=== PATIENT | male | born 1970 | race Caucasian/White ===

== ENCOUNTER 2019-04-29 11:32 | Emergency (ER) | payer OTHER ==
[2019-04-29 11:38] VITALS: TEMP 97.8
[2019-04-29] MEDS ORDERED: hydrALAZINE HCL 20 MG/ML 1 ML VIAL IVP STA (12:07)
--- NOTE | 2019-04-29 12:14 | ED ---
General Adult HPI - General Chief complaint: Recheck/Abnormal Lab/Rx Stated complaint: high bp Time Seen by Provider: 04/29/19 11:35 Source: patient, RN notes reviewed, old records reviewed Mode of arrival: ambulatory Limitations: no limitations - History of Present Illness Initial comments: This is a 48-year-old male who presents to the emergency department stating that he was getting employment physical and he told his blood pressure was extremely high and needed to come to the emergency department. Patient states she has no symptoms. Patient denies any chest pain palpitations difficulty breathing shortness of breath patient denies any fever chills or cough per patient denies any abdominal pain patient denies nausea vomiting diarrhea. Patient denies any headache patient denies any blurred vision. Patient states he is absolutely symptom-free - Related Data Previous Rx's Medication Instructions Recorded amLODIPine [Norvasc] 5 mg PO DAILY #30 tab 04/29/19 Allergies Allergy/AdvReac Type Severity Reaction Status Date / Time Penicillins Allergy Swelling Verified 04/29/19 11:36 Review of Systems ROS Statement: Those systems with pertinent positive or pertinent negative responses have been documented in the HPI. ROS Other: All systems not noted in ROS Statement are negative. Past Medical History Past Medical History: Hypertension History of Any Multi-Drug Resistant Organisms: None Reported Past Surgical History: No Surgical Hx Reported Past Psychological History: No Psychological Hx Reported Smoking Status: Current every day smoker Past Alcohol Use History: Occasional Past Drug Use History: None Reported General Exam - General Exam Comments Initial Comments: GENERAL: Patient is well-developed and well-nourished. Patient is nontoxic and well- hydrated and is in no acute distress. ENT: Neck is soft and supple. No significant lymphadenopathy is noted. Oropharynx is clear. Moist mucous membranes. Neck has full range of motion without eliciting any pain. There is no thyroid enlargement and no masses were felt. EYES: The sclera were anicteric and conjunctiva were pink and moist. Extraocular movements were intact and pupils were equal round and reactive to light. Eyelids were unremarkable. PULMONARY: Unlabored respirations. Good breath sounds bilaterally. No audible rales rhonchi or wheezing was noted. CARDIOVASCULAR: There is a regular rate and rhythm without any murmurs gallops or rubs. ABDOMEN: Soft and nontender with normal bowel sounds. No palpable organomegaly was noted. There is no palpable pulsatile mass. SKIN: Skin is clear with no lesions or rashes and otherwise unremarkable. NEUROLOGIC: Patient is alert and oriented x3. Cranial nerves II through XII are grossly intact. Motor and sensory are also intact. Normal speech, volume and content. Symmetrical smile. MUSCULOSKELETAL: Normal extremities with adequate strength and full range of motion. No lower extremity swelling or edema. No calf tenderness. LYMPHATICS: No significant lymphadenopathy is noted PSYCHIATRIC: Normal psychiatric evaluation. Limitations: no limitations Course Vital Signs 04/29/19 04/29/19 04/29/19 11:36 12:31 13:18 Temperature 97.8 F Pulse Rate 75 68 82 Respiratory 16 18 18 Rate Blood Pressure 221/142 188/115 172/96 O2 Sat by Pulse 96 98 98 Oximetry Medical Decision Making - Medical Decision Making EKG shows normal sinus rhythm at 73 bpm OK interval is on a 56 QRS is 96 QT interval 38 QTC is 427. Patient's EKG shows no ST segment elevation or depression. Chest x-ray shows no acute pulmonary process over there is a 1.7 cm pulmonary nodule that needs to be followed up. Patient's blood pressure came down significantly the emergency department. Patient remained asymptomatic throughout his stay. - Lab Data Result diagrams: 04/29/19 12:15 04/29/19 12:15 Lab Results 04/29/19 04/29/19 04/29/19 Range/Units 12:15 12:15 12:15 WBC 8.2 (3.8-10.6) k/uL RBC 5.81 (4.30-5.90) m/uL Hgb 16.7 (13.0-17.5) gm/dL Hct 50.8 (39.0-53.0) % MCV 87.5 (80.0-100.0) fL MCH 28.8 (25.0-35.0) pg MCHC 32.9 (31.0-37.0) g/dL RDW 13.7 (11.5-15.5) % Plt Count 180 (150-450) k/uL Neutrophils % 54 % Lymphocytes % 30 % Monocytes % 7 % Eosinophils % 6 % Basophils % 1 % Neutrophils # 4.4 (1.3-7.7) k/uL Lymphocytes # 2.4 (1.0-4.8) k/uL Monocytes # 0.5 (0-1.0) k/uL Eosinophils # 0.5 (0-0.7) k/uL Basophils # 0.1 (0-0.2) k/uL PT 9.9 (9.0-12.0) sec INR 0.9 (<1.2) APTT 25.9 (22.0-30.0) sec Sodium 137 (137-145) mmol/L Potassium 4.6 (3.5-5.1) mmol/L Chloride 104 (98-107) mmol/L Carbon Dioxide 26 (22-30) mmol/L Anion Gap 7 mmol/L BUN 11 (9-20) mg/dL Creatinine 0.95 (0.66-1.25) mg/dL Est GFR (CKD-EPI)AfAm >90 (>60 ml/min/1.73 sqM) Est GFR (CKD-EPI)NonAf >90 (>60 ml/min/1.73 sqM) Glucose 100 H (74-99) mg/dL Calcium 9.5 (8.4-10.2) mg/dL Magnesium 2.0 (1.6-2.3) mg/dL Total Bilirubin 0.9 (0.2-1.3) mg/dL AST 38 (17-59) U/L ALT 34 (4-49) U/L Alkaline Phosphatase 83 (38-126) U/L Troponin I (0.000-0.034) ng/mL Total Protein 7.7 (6.3-8.2) g/dL Albumin 4.4 (3.5-5.0) g/dL 04/29/19 Range/Units 12:15 WBC (3.8-10.6) k/uL RBC (4.30-5.90) m/uL Hgb (13.0-17.5) gm/dL Hct (39.0-53.0) % MCV (80.0-100.0) fL MCH (25.0-35.0) pg MCHC (31.0-37.0) g/dL RDW (11.5-15.5) % Plt Count (150-450) k/uL Neutrophils % % Lymphocytes % % Monocytes % % Eosinophils % % Basophils % % Neutrophils # (1.3-7.7) k/uL Lymphocytes # (1.0-4.8) k/uL Monocytes # (0-1.0) k/uL Eosinophils # (0-0.7) k/uL Basophils # (0-0.2) k/uL PT (9.0-12.0) sec INR (<1.2) APTT (22.0-30.0) sec Sodium (137-145) mmol/L Potassium (3.5-5.1) mmol/L Chloride (98-107) mmol/L Carbon Dioxide (22-30) mmol/L Anion Gap mmol/L BUN (9-20) mg/dL Creatinine (0.66-1.25) mg/dL Est GFR (CKD-EPI)AfAm (>60 ml/min/1.73 sqM) Est GFR (CKD-EPI)NonAf (>60 ml/min/1.73 sqM) Glucose (74-99) mg/dL Calcium (8.4-10.2) mg/dL Magnesium (1.6-2.3) mg/dL Total Bilirubin (0.2-1.3) mg/dL AST (17-59) U/L ALT (4-49) U/L Alkaline Phosphatase (38-126) U/L Troponin I <0.012 (0.000-0.034) ng/mL Total Protein (6.3-8.2) g/dL Albumin (3.5-5.0) g/dL Disposition Clinical Impression: Hypertensive urgency, Pulmonary nodule Disposition: HOME SELF-CARE Condition: Good Instructions (If sedation given, give patient instructions): Hypertension (ED) Additional Instructions: Patient needs to take his blood pressure before every meal and before bed and documented. Patient is to follow up with his primary medical doctor. Patient needs to take Norvasc as prescribed. If patient's blood pressure is not under 180 patient needs to take W amount of the Norvasc. Patient is to return to the emergency department if he has any chest pain difficulty breathing or shortness of breath. Patient is to return if he has any headache or blurred vision. Patient to return for any new or concerning symptoms. Patient needs to follow-up with his primary medical care doctor for the further evaluation of the pulmonary nodule Prescriptions: amLODIPine [Norvasc] 5 mg PO DAILY #30 tab Is patient prescribed a controlled substance at d/c from ED?: No Referrals: None,Stated [Primary Care Provider] - 1-2 days Time of Disposition: 14:07
[2019-04-29 12:34] VITALS: RESP 18
[2019-04-29 12:34] LABS: Basophils # (A) 0.1 k/uL (0-0.2); Basophils % (A) 1 %; Eosinophils # (A) 0.5 k/uL (0-0.7); Eosinophils % (A) 6 %; HCT 50.8 % (39.0-53.0); HGB 16.7 gm/dL (13.0-17.5); Lymphocytes # (A) 2.4 k/uL (1.0-4.8); Lymphocytes % (A) 30 %; MCH 28.8 pg (25.0-35.0); MCHC 32.9 g/dL (31.0-37.0); MCV 87.5 fL (80.0-100.0); Mean Platelet Volume 9.4; Monocytes # (A) 0.5 k/uL (0-1.0); Monocytes % (A) 7 %; Neutrophils # (A) 4.4 k/uL (1.3-7.7); Neutrophils % (A) 54 %; Platelet Count 180 k/uL (150-450); RBC 5.81 m/uL (4.30-5.90); RDW 13.7 % (11.5-15.5); WBC 8.2 k/uL (3.8-10.6)
[2019-04-29 12:39] LABS: ALT 34 U/L (4-49); AST 38 U/L (17-59); African American GFR (CKD) >90 (>60 ml/min/1.73 sqM); Albumin 4.4 g/dL (3.5-5.0); Alkaline Phosphatase 83 U/L (38-126); Anion Gap 7 mmol/L; Blood Urea Nitrogen 11 mg/dL (9-20); Calcium 9.5 mg/dL (8.4-10.2); Carbon Dioxide 26 mmol/L (22-30); Chloride 104 mmol/L (98-107); Glucose 100 mg/dL (74-99); Non-African American GFR(CKD) >90 (>60 ml/min/1.73 sqM); Potassium 4.6 mmol/L (3.5-5.1); Sodium 137 mmol/L (137-145); Total Bilirubin 0.9 mg/dL (0.2-1.3); Total Protein 7.7 g/dL (6.3-8.2)
[2019-04-29 12:45] LABS: INR 0.9 (<1.2); Partial Thromboplastin Time 25.9 sec (22.0-30.0); Prothrombin Time 9.9 sec (9.0-12.0)
--- NOTE | 2019-04-29 13:03 | XR ---
EXAMINATION TYPE: XR chest 2V DATE OF EXAM: 04/29/2019 COMPARISON: NONE HISTORY: Chest pain TECHNIQUE: Frontal and lateral views of the chest are obtained. FINDINGS: There is no focal air space opacity, pleural effusion, or pneumothorax seen. 1.7 cm nodule seen along the left heart border on the frontal view that appears within the lingula on the lateral view. The cardiac silhouette size is within normal limits. The osseous structures are intact. Mild multilevel degenerative change of the spine. IMPRESSION: 1. No acute cardiopulmonary process. 2. Lingular 1.7 cm pulmonary nodule. Follow-up CT thorax is recommended on a nonemergent basis.
[2019-04-29] MEDS ORDERED: amLODIPine 5 MG TAB PO STA (13:41)
[2019-04-29 14:15] VITALS: BP 175/107; PULSE 76
== END 2019-04-29 14:19 | disposition home or self-care (01) ==
LOC: EC 11:32
DX: I16.0 Hypertensive urgency (principal); R91.1 Solitary pulmonary nodule; F17.200 Nicotine dependence, unspecified, uncomplicated; Z88.0 Allergy status to penicillin
CPT/HCPCS: 99284; 96374; 36415; 93005; 80053; 83735; 84484; 85025; 85610; 85730; 71046; J0360

== ENCOUNTER 2021-06-15 10:34 | Emergency (ER) | payer OTHER ==
[2021-06-15 10:37] VITALS: TEMP 98.2
[2021-06-15 10:46] LABS: Glucose,Whole Blood 130 mg/dL (75-99)
[2021-06-15 11:24] LABS: Basophils # (A) 0.1 k/uL (0-0.2); Basophils % (A) 1 %; Eosinophils # (A) 0.1 k/uL (0-0.7); Eosinophils % (A) 1 %; HCT 51.7 % (39.0-53.0); HGB 16.8 gm/dL (13.0-17.5); Lymphocytes # (A) 1.5 k/uL (1.0-4.8); Lymphocytes % (A) 14 %; MCH 28.9 pg (25.0-35.0); MCHC 32.4 g/dL (31.0-37.0); MCV 89.3 fL (80.0-100.0); Mean Platelet Volume 9.8; Monocytes # (A) 0.4 k/uL (0-1.0); Monocytes % (A) 4 %; Neutrophils # (A) 8.6 k/uL (1.3-7.7); Neutrophils % (A) 80 %; Platelet Count 180 k/uL (150-450); RBC 5.79 m/uL (4.30-5.90); RDW 14.6 % (11.5-15.5); WBC 10.7 k/uL (3.8-10.6)
[2021-06-15 11:26] VITALS: RESP 18
--- NOTE | 2021-06-15 11:29 | ED ---
General Adult HPI - General Chief complaint: Dizziness Stated complaint: neuro issue Time Seen by Provider: 06/15/21 10:58 Source: patient Mode of arrival: wheelchair Limitations: no limitations - History of Present Illness Initial comments: Dictation was produced using [employer] dictation software. please excuse any grammatical, word or spelling errors. Chief Complaint: 50-year-old male presents emergency department for episode of right-sided numbness, dizziness, vertigo and diplopia History of Present Illness: Patient's 50-year-old male came home from work at around 4 PM yesterday. He went straight to bed. Patient woke up at 11 PM with numbness to his right face, right hand and right waist area. Patient states the symptoms of paresthesias lasted for several minutes however resolved on its own. Around that time he had intense vertigo causing him to fall to the ground. Patient states he was so vertiginous that he was not able to get up. Several minutes later he was able to muster enough strength to at least once that up on the couch. This morning he was discovered by his to bees sitting on the couch. He told his what happened and ended up in the emergency department. Patient has history of hypertension. Patient states that at the bedside is on complaints now are of dizziness and diplopia. He states that his diplopia is worse whenever he looks to the upper left area states that his right eye seems to be abnormal compared to his left eye. Patient denies any pain complaints. The ROS documented in this emergency department record has been reviewed and confirmed by me. Those systems with pertinent positive or negative responses have been documented in the HPI. All other systems are other negative and/or noncontributory. PHYSICAL EXAM: General Impression: Alert and oriented x3, not in acute distress HEENT: Normocephalic atraumatic, extra-ocular movements intact, pupils equal and reactive to light bilaterally, mucous membranes moist. Cardiovascular: Heart regular rate and rhythm Chest: Able to complete full sentences, no retractions, no tachypnea Abdomen: abdomen soft, non-tender, non-distended, no organomegaly Musculoskeletal: Pulses present and equal in all extremities, no peripheral edema Motor: no focal deficits noted Neurological: CN II-XII grossly intact, no focal motor or sensory deficits noted, NIH 0, no extremity ataxia but no observable diplopia or weakness of ext raocular movements Skin: Intact with no visualized rashes Psych: Normal affect and mood ED course: 50-year-old male presents to the emergency department for episode of vertigo, right-sided weakness. At the bedside states that symptoms all resolved except for some diplopia and dizziness. Vital signs upon arrival shows blood pressure 207/117, worse vital signs within acceptable limits. EKG interpretation: Ventricular rate 70, sinus rhythm, DE interval 132, care is 106, QTC 423. No DE prolongation, no QTC prolongation, no ST or T-wave changes noted. EKG compared to 04/29/2019 showing depressions in 3 and aVF. He does appear to be findings to suggest early repolarization in the high lateral and anterior precordial leads Laboratory evaluation obtained. CBC, coag panel, metabolic panel is within acceptable limits. Troponin is negative. Computed tomography scan of the brain shows hypodensity extending from the subcortical right parietal lobe towards the right basal ganglion which may be acute. Radiology recommends MRI evaluation. CT angiogram of the head and neck was ordered showing no suspicion of flow- limiting stenosis. Patient given aspirin. Disposition options were discussed. Strongly recommended the patient be admitted to the hospital for stroke workup. He refused. He understands that he could have a severe stroke that may occur within the next 48 hours which may lead to permanent disability and perhaps even . He understands and preferred to just go home and rest and follow-up with his primary care doctor. estimates bedside does not agree with the disposition however it is patient's wishes. They're given strict return precautions and told to come back to the emergency Department immediately if he starts to have symptoms of stroke. Given that patient does not have any focal neurologic deficits his clinical presentation is consistent with transient ischemic attack. - Related Data Previous Rx's Medication Instructions Recorded amLODIPine [Norvasc] 5 mg PO DAILY #30 tab 04/29/19 Allergies Allergy/AdvReac Type Severity Reaction Status Date / Time Penicillins Allergy Swelling Verified 06/15/21 10:36 Review of Systems ROS Statement: Those systems with pertinent positive or pertinent negative responses have been documented in the HPI. ROS Other: All systems not noted in ROS Statement are negative. Past Medical History Past Medical History: Hypertension History of Any Multi-Drug Resistant Organisms: None Reported Past Surgical History: No Surgical Hx Reported Past Psychological History: No Psychological Hx Reported Smoking Status: Current every day smoker Past Alcohol Use History: Occasional Past Drug Use History: None Reported General Exam Limitations: no limitations Course Vital Signs 06/15/21 06/15/21 06/15/21 10:34 10:36 11:00 Temperature 98.2 F Pulse Rate 82 74 69 Respiratory 16 18 18 Rate Blood Pressure 207/117 158/90 162/97 O2 Sat by Pulse 94 L 97 96 Oximetry 06/15/21 06/15/21 06/15/21 11:15 11:24 11:30 Temperature Pulse Rate 70 72 68 Respiratory 18 18 18 Rate Blood Pressure 184/102 184/102 164/94 O2 Sat by Pulse 95 95 97 Oximetry 06/15/21 06/15/21 06/15/21 11:45 12:00 12:45 Temperature Pulse Rate 68 78 80 Respiratory 18 18 18 Rate Blood Pressure 164/94 149/82 186/100 O2 Sat by Pulse 97 97 99 Oximetry Medical Decision Making - Lab Data Result diagrams: 06/15/21 11:16 06/15/21 11:16 Lab Results 06/15/21 06/15/21 06/15/21 Range/Units 10:43 11:16 11:16 WBC 10.7 H (3.8-10.6) k/uL RBC 5.79 (4.30-5.90) m/uL Hgb 16.8 (13.0-17.5) gm/dL Hct 51.7 (39.0-53.0) % MCV 89.3 (80.0-100.0) fL MCH 28.9 (25.0-35.0) pg MCHC 32.4 (31.0-37.0) g/dL RDW 14.6 (11.5-15.5) % Plt Count 180 (150-450) k/uL MPV 9.8 Neutrophils % 80 % Lymphocytes % 14 % Monocytes % 4 % Eosinophils % 1 % Basophils % 1 % Neutrophils # 8.6 H (1.3-7.7) k/uL Lymphocytes # 1.5 (1.0-4.8) k/uL Monocytes # 0.4 (0-1.0) k/uL Eosinophils # 0.1 (0-0.7) k/uL Basophils # 0.1 (0-0.2) k/uL PT 10.7 (9.0-12.0) sec INR 1.0 (<1.2) APTT 25.3 (22.0-30.0) sec Sodium (137-145) mmol/L Potassium (3.5-5.1) mmol/L Chloride (98-107) mmol/L Carbon Dioxide (22-30) mmol/L Anion Gap mmol/L BUN (9-20) mg/dL Creatinine (0.66-1.25) mg/dL Est GFR (CKD-EPI)AfAm (>60 ml/min/1.73 sqM) Est GFR (CKD-EPI)NonAf (>60 ml/min/1.73 sqM) Glucose (74-99) mg/dL POC Glucose (mg/dL) 130 H (75-99) mg/dL POC Glu [place] Burnisher ID July, Calcium (8.4-10.2) mg/dL Magnesium (1.6-2.3) mg/dL Troponin I (0.000-0.034) ng/mL 06/15/21 06/15/21 Range/Units 11:16 11:16 WBC (3.8-10.6) k/uL RBC (4.30-5.90) m/uL Hgb (13.0-17.5) gm/dL Hct (39.0-53.0) % MCV (80.0-100.0) fL MCH (25.0-35.0) pg MCHC (31.0-37.0) g/dL RDW (11.5-15.5) % Plt Count (150-450) k/uL MPV Neutrophils % % Lymphocytes % % Monocytes % % Eosinophils % % Basophils % % Neutrophils # (1.3-7.7) k/uL Lymphocytes # (1.0-4.8) k/uL Monocytes # (0-1.0) k/uL Eosinophils # (0-0.7) k/uL Basophils # (0-0.2) k/uL PT (9.0-12.0) sec INR (<1.2) APTT (22.0-30.0) sec Sodium 138 (137-145) mmol/L Potassium 4.4 (3.5-5.1) mmol/L Chloride 107 (98-107) mmol/L Carbon Dioxide 22 (22-30) mmol/L Anion Gap 9 mmol/L BUN 18 (9-20) mg/dL Creatinine 0.95 (0.66-1.25) mg/dL Est GFR (CKD-EPI)AfAm >90 (>60 ml/min/1.73 sqM) Est GFR (CKD-EPI)NonAf >90 (>60 ml/min/1.73 sqM) Glucose 138 H (74-99) mg/dL POC Glucose (mg/dL) (75-99) mg/dL POC Glu [place] Burnisher ID Calcium 9.6 (8.4-10.2) mg/dL Magnesium 1.8 (1.6-2.3) mg/dL Troponin I <0.012 (0.000-0.034) ng/mL Disposition Clinical Impression: TIA (transient ischemic attack) Disposition: HOME SELF-CARE Condition: Serious Instructions (If sedation given, give patient instructions): Stroke (DC) Is patient prescribed a controlled substance at d/c from ED?: No Referrals: Isidro Monge MD [Primary Care Provider] - 1-2 days
[2021-06-15 11:32] LABS: Partial Thromboplastin Time 25.3 sec (22.0-30.0); Prothrombin Time 10.7 sec (9.0-12.0)
[2021-06-15 11:47] LABS: African American GFR (CKD) >90 (>60 ml/min/1.73 sqM); Anion Gap 9 mmol/L; Blood Urea Nitrogen 18 mg/dL (9-20); Calcium 9.6 mg/dL (8.4-10.2); Carbon Dioxide 22 mmol/L (22-30); Chloride 107 mmol/L (98-107); Glucose 138 mg/dL (74-99); Magnesium 1.8 mg/dL (1.6-2.3); Non-African American GFR(CKD) >90 (>60 ml/min/1.73 sqM); Potassium 4.4 mmol/L (3.5-5.1); Sodium 138 mmol/L (137-145)
--- NOTE | 2021-06-15 12:00 | CT ---
EXAMINATION TYPE: CT brain wo con DATE OF EXAM: 06/15/2021 COMPARISON: None INDICATION: Dizziness and diplopia. DLP: 1074.4 mGycm, Automated exposure control for dose reduction was used. CONTRAST: None CT of the brain is performed utilizing 3 mm thick sections through the posterior fossa and 3 mm thick sections through the remaining calvarium. Study is performed within 24 hours of arrival to the hosp ital. No abnormal hyperdensity is present to suggest an acute intracranial hemorrhage. No mass lesion is evident. There is subcortical hypodensity within the right [place] radiata extending towards the basal ganglion . An acute subcortical infarction be considered. MRI can be performed for closer evaluation. Ventricles and sulci are appropriate for the patient age. Paranasal sinuses and mastoid air cells within the [id number] are clear. IMPRESSIONS: 1. Hypodensity extending from the subcortical right parietal lobe towards the right basal ganglion can be some ischemic change of indeterminate age. This could be acute. Additional evaluation with MRI is recommended.
--- NOTE | 2021-06-15 13:37 | CT ---
EXAMINATION TYPE: CT angio head neck DATE OF EXAM: 06/15/2021 COMPARISON: None HISTORY: CVA CT DLP: 1072.2 mGycm Automated exposure control for dose reduction was used. Contrast: None Technique: Axial images 3 mm thick sections. Reconstructed images in the coronal and sagittal plane. Three-D reconstructed images performed on a separate computer by the technologist are presented. FINDINGS: CT neck: Lung apices within the field of view are clear. Descending thoracic aorta as well as the ma in pulmonary artery is 4.0 cm. The main pulmonary artery at the bifurcation is 2.9 cm. CTA NECK: There appears to be a two-vessel arch with the left common carotid artery arising from the innominate. Left vertebral artery appears to be dominant. Carotid bifurcation appears normal without focal stenosis. Significant plaquing is not identified. Progress CTA sleetm[place] of [place]: Internal carot id arteries bifurcate normally into A1 and M1 segments. Anterior communicating artery is not identifi ed. A2 segments are normal. Middle cerebral artery branches appear normal. Vertebral basilar system i s unremarkable. Right posterior communicating artery is patent. Left posterior communicating artery i s patent. Posterior cerebral vasculature appears normal. Suspicious diminished contrast within the ca lvarium is not evident. MRI may be more sensitive for acute changes. IMPRESSION: 1. NO SUSPICIOUS FLOW-LIMITING STENOSIS CAROTID BIFURCATIONS. 2. AMBLER OF ROB[place] APPEARS WITHIN NORMAL LIMITS.
[2021-06-15] MEDS ORDERED: ASPIRIN 81 MG PO STA (13:57)
[2021-06-15 14:11] VITALS: BP 168/96; PULSE 78
== END 2021-06-15 14:09 | disposition home or self-care (01) ==
LOC: EC 10:34
DX: G45.9 Transient cerebral ischemic attack, unspecified (principal); I10 Essential (primary) hypertension; F17.200 Nicotine dependence, unspecified, uncomplicated
CPT/HCPCS: 36415; 93005; 80048; 83735; 84484; 85025; 85610; 85730; 70496; 70450; 70498; 99284; Q9967

== ENCOUNTER → 2023-01-28 | Outpatient (CLI) | payer OTHER ==
--- NOTE | 2023-01-29 08:31 | CT ---
EXAMINATION TYPE: CT chest w con DATE OF EXAM: 01/28/2023 COMPARISON: None HISTORY: pulmonary nodule CT DLP: 544.9 mGycm Automated exposure control for dose reduction was used. TECHNIQUE: CT scan of the chest is performed with IV Contrast, patient injected with 100 cc mL of Isovue 300. M IP Images are created on CT scanner and reviewed. 3D reconstructed images are created on an [employer] workstation and reviewed. FINDINGS: LUNGS: Groundglass changes posteriorly likely related to dependent atelectasis. No localized consolid ative pneumonia. No evidence of heart failure. Tracheobronchial tree is patent. There are no suspicio us appearing pulmonary masses or nodules. There is a benign-appearing calcified granuloma within the lingular segment left upper lobe measuring 1.5 cm MEDIASTINUM: A calcified lymph node in the mediastinum. There is a subcarinal lymph node measuring sh ort axis of 1.5 cm. OTHER: Findings compatible with hepatic steatosis. Multilevel hypertrophic and degenerative change o f the spine. There is a granuloma of the spleen. Small hiatal hernia. IMPRESSION: 1. Benign calcified granuloma left upper lobe 2. Nonspecific subcarinal adenopathy possibly reactive correlate clinically. 3. Hepatic stenosis. Follow-up recommendations for incidental pulmonary nodules are per [employer] [place] [employer] or [employer].
== END | disposition home or self-care (01) ==
LOC: RADCTMAIN 16:56
PROVIDERS: ATTEND Family Medicine
DX: R91.1 Solitary pulmonary nodule (principal); R59.0 Localized enlarged lymph nodes; J84.10 Pulmonary fibrosis, unspecified
CPT/HCPCS: 71260; Q9967